=== PATIENT | female | born 1950 | race Caucasian/White ===

== ENCOUNTER 2021-11-06 06:20 | Day surgery (SDC) | payer MEDICARE, OTHER ==
[2021-11-06] MEDS ORDERED: Lactated Ringers 1,000 ML IV SCH (06:30)
[2021-11-06] MEDS ORDERED: DIPRIVAN 200 MG/20 ML IV ONE (07:46)
[2021-11-06] MEDS ORDERED: SUBLIMAZE 100 MCG/2 ML ONE (07:46)
[2021-11-06] MEDS ORDERED: Xylocaine-Mpf 2% 5 Ml Vial ONE (07:49)
[2021-11-06 09:02] VITALS: PULSE 65
[2021-11-06 09:16] VITALS: BP 152/93; O2SAT 96
--- NOTE | 2021-11-06 11:16 | OP ---
SURGERY DATE/TIME: 11/06/2021 0759 PREOPERATIVE DIAGNOSES: 1) Change in bowel habits. 2) History of colon polyps. POSTOPERATIVE DIAGNOSIS: Sigmoid diverticulosis. PROCEDURE: Colonoscopy. SURGEON: Dr. Monroy. ANESTHESIA: MAC. Medications given by anesthesia department. HISTORY: The patient is a 71-year-old white female who reports she had a colonoscopy roughly three or four years ago at which time polyps were found. The patient is now experiencing a change in bowel habits with more constipation issues. The patient is felt the need to have endoscopic evaluation. She was appraised of the risks of the procedure including the risk of perforation, phlebitis, untoward reaction to medication, bleeding and missed lesions. The patient verbalized her understanding and desired to have the procedure performed. DESCRIPTION OF PROCEDURE: The patient was given the medications by the anesthesia department. She had continuous pulse oximetry, ECG monitoring, intermittent blood pressure monitoring during the examination. She was placed in the left lateral decubitus position. A digital rectal examination was performed and revealed normal anal sphincter tone and no masses. Mild hemorrhoids. The flexible Olympus pediatric colonoscope was used to intubate the rectum. A view of the colon was developed sequentially to the cecum. Upon insertion and withdrawal, including a retroflex view in the rectum was noted sigmoid diverticulosis that was moderate in nature. The scope was removed from the patient who tolerated the procedure well and was sent back to OP recovery in good condition. The prep was noted to be fair with large amounts of liquid stool and some solid stool present in particular the sigmoid colon.
== END 2021-11-06 09:25 | disposition home or self-care (01) ==
LOC: SDC 06:20
PROVIDERS: ATTEND Family Medicine
DX: K57.30 Diverticulosis of large intestine without perforation or abscess without bleeding (principal); R19.4 Change in bowel habit; K64.9 Unspecified hemorrhoids; Z86.010 Personal history of colon polyps
CPT/HCPCS: J2704; J3010

== ENCOUNTER 2023-02-14 11:48 | Emergency (ER) | payer MEDICARE, OTHER ==
--- NOTE | 2023-02-14 12:11 | ERPHSYRPT ---
- History of Present Illness Time Seen by Provider: 02/14/23 12:11 Source: patient Exam Limitations: no limitations Physician History: This is a 73-year-old white female patient of Dr. Moseley who is here because she is having right lower extremity bruising and swelling that is worse since her fall on Tuesday prior to this evaluation. Patient is not on any anticoagulation therapy. She does have a history of obesity, hypertension, hypothyroidism. Patient states that she had negative x-rays that were performed at the time of the fall. However, there has been increased swelling and bruising present. She is concerned for blood clot and possible occult fracture. She denies shortness of breath and she denies chest pain. Quality: aching, tightness Severity of Pain-Max: mild (To moderate) Severity of Pain-Current: mild (To moderate) Lower Extremities Pain: leg: right (Lower), knee: right, ankle: right Modifying Factors: Improves With: movement Associated Symptoms: other (Can bear weight but it feels very tight.) Allergies/Adverse Reactions: No Known Drug Allergies Allergy (Verified 02/14/23 12:11) Home Medications: Aspirin 81 mg PO DAILY 11/04/21 [History] Citalopram Hydrobromide [Celexa] 20 mg PO DAILY 11/04/21 [History] Ergocalciferol (Vitamin D2) [Vitamin D2] 50 mcg PO DAILY 11/04/21 [History] Levothyroxine Sodium 75 Mcg [Synthroid 75 Mcg] 75 mcg PO DAILY 11/04/21 [History] Verapamil HCl 120 mg PO DAILY 11/04/21 [History] buPROPion HCL [Wellbutrin Xl] 300 mg PO DAILY 11/04/21 [History] Travel Risk - International Travel Have you traveled outside of the country in past 3 weeks: No - Coronavirus Screening Are you exhibiting any of the following symptoms?: No Close contact with a COVID-19 positive Pt in past 14-21 Days: No - Review of Systems Constitutional: No Symptoms Eyes: No Symptoms Ears, Nose, & Throat: No Symptoms Respiratory: No Symptoms Cardiac: No Symptoms Abdominal/Gastrointestinal: No Symptoms Genitourinary Symptoms: No Symptoms Musculoskeletal: Injury (Right lower leg from the proximal knee distally) Skin: Other (Ecchymosis and swelling) Neurological: No Symptoms Psychological: No Symptoms Endocrine: No Symptoms Hematologic/Lymphatic: No Symptoms Immunological/Allergic: No Symptoms All Other Systems: Reviewed and Negative - Past Medical History Pertinent Past Medical History: Yes Endocrine Medical History: Hypothyroidism - Past Surgical History Past Surgical History: Yes Female Surgical History: Hysterectomy, Tubal Ligation - Social History Smoking Status: Former smoker Exposure to second hand smoke: No - Nursing Vital Signs Nursing Vital Signs: Initial Vital Signs Temperature 97.6 F 02/14/23 12:13 Pulse Rate 64 02/14/23 12:13 Respiratory Rate 18 02/14/23 12:13 Blood Pressure 172/87 02/14/23 12:13 O2 Sat by Pulse Oximetry 97 02/14/23 12:13 Pain Scale Pain Intensity 0 - Physical Exam General Appearance: no apparent distress, alert, anxiety, obese Eyes, Ears, Nose, Throat Exam: normal ENT inspection, moist mucous membranes Neck Exam: normal inspection, non-tender, supple, full range of motion Cardiovascular/Respiratory Exam: chest non-tender, no respiratory distress Gastrointestinal/Abdominal Exam: non-tender Back Exam: normal inspection, normal range of motion, No CVA tenderness, No vertebral tenderness Hips Exam: bilateral: non-tender, normal inspection, normal range of motion, no evidence of injury Legs Exam: right leg: ecchymosis, soft tissue tenderness, swelling, other (Tightness), left leg: non-tender, normal inspection, normal range of motion, no evidence of injury Knees Exam: right knee: ecchymosis, soft tissue tenderness, swelling, left knee: non-tender, normal inspection, normal range of motion, no evidence of injury Ankle Exam: right ankle: ecchymosis, soft tissue tenderness, swelling, left ankle: non-tender, normal inspection, normal range of motion, no evidence of injury Foot Exam: right foot: ecchymosis, soft tissue tenderness, swelling, left foot: non-tender, normal inspection, normal range of motion, no evidence of injury Neuro/Tendon Exam: normal sensation, normal motor functions, normal tendon functions, responds to pain, no evidence tendon injury Mental Status Exam: alert, oriented x 3, cooperative Skin Exam: other SpO2 Interpretation: normal (See above) O2 Delivery: Room Air - Course Nursing assessment & vital signs reviewed: Yes Ordered Tests: Active Orders 24 hr Category Date Time Status LOWER EXTREMITY WO CONTRAST [CT] Stat Exams 02/14/23 14:19 Completed VENOUS UNILAT/LIMITED EXTREMIT [US] Stat Exams 02/14/23 13:12 Completed - Progress Progress: unchanged Progress Note: 02/14/23 14:45 Venous Doppler right lower extremity is negative for DVT. CT scan right lower extremity distal femur to foot on the right side is negative for any acute fracture or dislocation. There is subcutaneous hematoma present. There is also some degenerative changes in the joint spaces. Patient's medical issue today is 1 of low to moderate complexity. The level of complexity is based on the review of the patient's past medical history, review of the patient's medical history, review of the medication list, review of the patient's drug allergy list, and physical exam findings. Patient had a negative plain x-ray films but she is concerned about a DVT and occult fracture. Therefore, I ordered a venous Doppler of the right lower extremity and a CT scan of the right lower extremity from the distal femur distally to the foot. The above-stated findings are noted. Patient be discharged home with instructions to ambulate as tolerated. She is to also keep the leg elevated above the level of her heart when she is not up and ambulating. Counseled pt/family regarding: diagnosis, need for follow-up, rad results Medical Desision Making - Discussion of managment Agreed on:: Treatment plan, need for follow-up - Diagnostic Testing Radiological Interpretation: Reviewed by me, Teleradiologist Report - Risk of complications Low Risk: Low risk of morbidity from additional dx testing or treatment - Departure Departure Disposition: Home Clinical Impression: Fall with injury, Subcutaneous hematoma Condition: Stable Critical Care Time: No Referrals: JEANMARIE MOSELEY MD [Primary Care Provider] - Follow up/PCP as directed Additional Instructions: Keep your right lower extremity elevated above the level of your heart when not up and ambulating. Follow-up with your primary care provider for further evaluation management.
--- NOTE | 2023-02-14 13:44 | XRAY ---
Indication: Swelling and bruising following fall. Two-dimensional sonogram and color Doppler imaging of the major venous vessels of the right leg performed. Comparison: None No thrombus seen in the examined deep venous vessels of the right leg including greater saphenous vein. Veins demonstrate normal compressibility. Venous waveforms are normal with and without augmentation. Impression: Right leg negative for DVT.
[2023-02-14 14:01] VITALS: BP 143/83; PULSE 60; O2SAT 98
--- NOTE | 2023-02-14 14:38 | XRAY ---
Indication: Bruising following fall one week ago. Multiple contiguous axial images obtained through the right lower leg without contrast to include knee and ankle joint. Sagittal and coronal reformatted images obtained. Comparison: None Anterior lateral knee demonstrates subcutaneous hematoma on at least 4.9 x 1.6 x 9.4 cm in greatest AP, transverse, and CC projections. Knee joint demonstrates mild tricompartmental degenerative changes greatest medial compartment. Incidental small fabella posterior to lateral condyle. Small plantar heel spur and tiny navicular accessory ossicles. No acute fracture, dislocation, or suspicious bony lesions. Remaining visualized noncontrasted soft tissues are unremarkable. Impression: 1. Anterior lateral knee subcutaneous hematoma, tricompartmental knee degenerative arthropathy, and small heel spur. 2. Remaining CT right lower extremity is normal.
== END 2023-02-14 15:03 | disposition home or self-care (01) ==
LOC: ED 11:48
DX: S80.11XA Contusion of right lower leg, initial encounter (principal); W19.XXXA Unspecified fall, initial encounter; Z79.899 Other long term (current) drug therapy
CPT/HCPCS: 73700; 93971; 99283